=== PATIENT | male | born 1995 | race Caucasian/White ===

== ENCOUNTER 2022-12-04 16:39 | Observation (INO) | payer OTHER, BC ==
[2022-12-04] MEDS ORDERED: HYDROmorphone 1 MG/ML Syringe IVPUSH ONE ×3 (17:07→18:52)
[2022-12-04] MEDS ORDERED: Metoclopramide 10 MG/2 ML SDV IVPUSH ONE (17:08)
[2022-12-04] MEDS ORDERED: Dextrose 5%-0.9% NaCl 1,000 ML IV SCH (17:15)
[2022-12-04] MEDS ORDERED: Diphtheria,Pertussis(Acell),Tetanus Vaccine 0.5 ML Syringe IM ONE (17:31)
[2022-12-04] MEDS ORDERED: ceFAZolin 1 GM in Sodium Chloride 0.9% 50 ML IV ONE (20:45)
[2022-12-04] MEDS ORDERED: Ondansetron 4 MG/2 ML SDV IV ONE (20:49)
[2022-12-04] MEDS ORDERED: Naloxone 0.4 MG/ML SDV IVPUSH PRN (21:00)
[2022-12-04] MEDS ORDERED: Cyclobenzaprine 10 MG Tab PO PRN (21:06)
[2022-12-04] MEDS ORDERED: cefTRIAXone 1 GM in Sodium Chloride 0.9% 100 ML IV SCH (21:15)
[2022-12-04] MEDS: oxyCODONE 5 MG Tab PO PRN (21:39)
[2022-12-04] MEDS ORDERED: Morphine 2 MG/ML SYRINGE IVPUSH PRN (23:14)
[2022-12-04] MEDS ORDERED: Ketorolac 30 MG/ML SDV IVPUSH PRN (23:15)
[2022-12-04] MEDS: Morphine 2 MG/ML SYRINGE IVPUSH SCH (23:30)
[2022-12-05] MEDS: oxyCODONE 5 MG Tab PO PRN ×4 (01:33→13:55)
[2022-12-05] MEDS ORDERED: ceFAZolin 1 GM in Sodium Chloride 0.9% 50 ML IV ONE (05:00)
== END 2022-12-05 16:13 | disposition home or self-care (01) ==
LOC: JD.ED 16:39 → JD.MS 20:50
PROVIDERS: ADMIT Orthopaedic Surgery; ATTEND Orthopaedic Surgery
DX: S92.421A Displaced fracture of distal phalanx of right great toe, initial encounter for closed fracture (principal); S92.531A Displaced fracture of distal phalanx of right lesser toe(s), initial encounter for closed fracture; S92.511A Displaced fracture of proximal phalanx of right lesser toe(s), initial encounter for closed fracture; F17.210 Nicotine dependence, cigarettes, uncomplicated; Z79.82 Long term (current) use of aspirin; Z79.2 Long term (current) use of antibiotics; Z23 Encounter for immunization; W20.8XXA Other cause of strike by thrown, projected or falling object, initial encounter
CPT/HCPCS: 73630; 73700; 90471; 90715; 96361; 96365; 96375; 96376; 97161; 99284; A9270; J0690; J1170; J2270; J2405; J2765; J3490; J7042; 99285; G0378